=== PATIENT | female | born 1955 | race Caucasian/White ===

== ENCOUNTER → 2020-08-20 11:07 | Outpatient (BNVA) | payer OTHER, SELFPAY | PROVIDERS: Family Provider Family Medicine; PCP Family Medicine; Visit Provider Internal Medicine | DX: E05.90 Thyrotoxicosis, unspecified without thyrotoxic crisis or storm (principal); E27.8 Other specified disorders of adrenal gland; Z86.018 Personal history of other benign neoplasm | CPT/HCPCS: 99204 ==